=== PATIENT | female | born 1955 | race Caucasian/White ===

== ENCOUNTER 2018-11-26 02:49 | Inpatient (IN) ==
[2018-11-26] MEDS ORDERED: Naloxone 0.4 MG/ML INJ IVP PRN (10:30)
[2018-11-26] MEDS ORDERED: Albuterol 2.5 MG/3 ML NEBULIZER IH PRN (10:35)
--- NOTE | 2018-11-26 10:55 | Internal Med History&Physical ---
Date of Encounter: 11/26/18 Time of Encounter: 10:46 Internal Medicine - H&P: HPI Chief complaint: shortness of breath. vaginal bleeding Plans for Post Hospital Care: Home History of present illness: Ms. Grimes is a 63 year old female PMH of arthritis and vaginal bleeding. Patient was transferred from an outside facility where she presented due to shortness of breath. Information obtained from the patient's . He reports for the past couple of days the patient has been having more labored breathing, and she is getting short of breath with minimal exertion. Reports she gets short of breath now with changing position when she tries to sit up from a laying position she is winded, denies chest pain, but reports worsening edema on the lower extr b/l. Reports productive cough of clear sputum for the past couple of days. Denies increased water intake. They also reports the patient has been having vaginal bleeding for the past year. Reports she normally has vaginal bleeding every 4-5 weeks and it last 2-3 days. described the bleeding as passing big clots. Stated she had a biopsy done at a hospital in [place] but they lost follow up. patient was found to be profoundly anemic and was [place] [facility] [place] Past Med Surg Social Fam HX - Past Medical History Medical history: no medical history Psychiatric history: no psych history - Social History Smoking Status: 2nd Hand Smoke Exposure Smokeless Tobacco Status: No Alcohol use: none Drug use: none Internal Medicine - H&P: Meds Allergy/AdvReac Type Severity Reaction Status Date / Time No Known Allergies Allergy Verified 04/06/15 08:18 All Systems PM: A 10-system review of systems was performed and is negative for pertinent findings except as documented above in the HPI. - Constitutional Constitutional: no chills, no fever(s), no weakness - EENT Eyes: no change in vision, no pain Nose, mouth and throat: no dental pain - Cardiovascular Cardiovascular ROS IM: dyspnea, dyspnea on exertion, orthopnea, paroxysmal nocturnal dyspnea, no chest pain, no palpitations - Respiratory Respiratory: cough, no chest congestion, no excessive phlegm production, no change in phlegm color - Gastrointestinal Gastrointestinal: no abdominal pain, no nausea, no vomiting - Genitourinary Genitourinary: abnormal vaginal bleeding, no dysuria, no vaginal discharge - Musculoskeletal Musculoskeletal ROS IM: arthralgias, no back pain, no muscle weakness - Integumentary Integumentary IM: no erythema - Neurological Neurological ROS: no headache(s) - Psychiatric Psychiatric: no anxiety, no hopelessness - Endocrine Endocrine IM: no cold intolerance, no excessive sweating - Hematologic/Lymphatic Hematologic/Lymphatic: no lymphadenopathy - Allergic/Immunologic Allergic/Immunologic: no GI upset with certain foods - Constitutional Exam: Vitals: Reviewed General: Alert and oriented x4. In mild distress due to shortness of breath Skin: Normal color, no rash, no lesions. HEENT: EOM, pupils equal, round and reactive. Cardiovascular: RRR, normal S1 & S2, no rubs, murmurs or gallops. Lungs: crackles at the right lower lobe, no wheezing. Abdomen: Obese, soft, non-tender, no rigidity. NABS in all 4 quadrants Extremities: 2-3+ pitting edema Neurological: Normal cognition and motor skills. Rest of the physical exam is non contributory Internal Med - H&P Results - Diagnostic Studies Chest x-ray Status: image reviewed by me (right lober lobe effusion +/- consolidatation) - Assessment and Plan (1) Shortness of breath Current Visit: Yes Status: Acute Assessment and plan: possible secondary to symptomatic anemia vs CHF. Plan - Patient received 1 PRBCs, will repeat CBC 1 hour post transfusion - will transfuse per protocol - Iron panel - microcytic anemia. started on Iron replacement - TTE ordered to evaluate possible CHF, wall and valvular abnormalities as the cause of her sob. - started on furosemide 40mg/IV BID - fluids restriction to 1.5 litters a day, daily weight and strict intake and output - (2) DVT prophylaxis Current Visit: Yes Status: Chronic Assessment and plan: intermittent pneumatic compression. no chemical dvt prophylaxis due to vaginal bleeding (3) Pleural effusion, right Current Visit: Yes Status: Acute Assessment and plan: possible due to chf. patient started on IV diuretics. consider repeating chest x-ray after appropriate diuresis. incentive spirometry (4) Anemia Current Visit: No Status: Chronic Assessment and plan: Microcytic anemia possibly secondary to iron deficiency in the setting of vaginal bleeding. Plan of care as per problem #1 Qualifiers: Anemia type: iron deficiency Iron deficiency anemia type: chronic blood loss Qualified Code(s): D50.0 - Iron deficiency anemia secondary to blood loss (chronic) (5) Community acquired pneumonia Current Visit: No Status: Acute Assessment and plan: XR/XR chest 1V portable IMPRESSION: Consolidation within the right mid to lower lung, most compatible with pneumonia. That should be followed to resolution. Cardial-pericardial silhouette enlargement. Plan patient started on ceftriaxone 1gm/IV daily and azithromycin 500mg/IV daily legionella and strep pneumonia ordered sputum culture and gram stain Qualifiers: Laterality: right Lung location: lower lobe of lung Qualified Code(s): J18.1 - Lobar pneumonia, unspecified organism (6) Vaginal bleeding Current Visit: No Status: Chronic Assessment and plan: reports vaginal bleeding for about a year. lost follow up. Plan - OB&PAIRER ODDS consulted, recommendations appreciated - Time Spent With Patient Total time spent is greater than 50% in coordination of care (as documented) at patient's floor/unit and/or counseling patient: Greater than 35 minutes (45)
[2018-11-26 11:11] LABS: Basophils % 0.3 %; Hemoglobin 6.8 g/dL (11.5-15.4)
[2018-11-26 11:12] LABS: Eosinophils # 0.1 K/mcL (0.0-0.6); Eosinophils % 0.4 %; Hematocrit 25.7 % (35.3-44.9); Immature Granulocytes % 3.5 % (0-4); Lymphocytes # 1.5 K/mcL (0.6-4.6); Mean Corpuscular HGB Conc 26.5 g/dL (31.6-35.5); Mean Corpuscular Hemoglobin 22.4 pg (28.0-33.3); Mean Corpuscular Volume 84.5 fL (83.0-100.0); Monocytes % 8.8 %; Nucleated Red Blood Cells 1.4 /100 WBC (0); Platelet Count 293 K/mcL (140-400); Red Blood Count 3.04 M/mcL (3.82-4.97); Red Cell Distribution Width 18.6 % (11.5-14.5); White Blood Count 11.4 K/mcL (4.3-11.1)
[2018-11-26 11:35] LABS: Neutrophils # 8.4 K/mcL (1.6-8.9)
[2018-11-26 11:38] LABS: Anisocytosis 1+ (Not Present)
[2018-11-26 11:39] LABS: Hypochromasia Present (Not Present)
[2018-11-26 11:40] LABS: Microcytosis Present (Not Present); Platelet Estimate Normal (Normal)
[2018-11-26] MEDS: Furosemide 40 MG/4 ML VIAL IVP SCH ×2 (12:11→18:41)
[2018-11-26] MEDS ORDERED: 0.9 % Sodium Chloride 250 ML ONE (14:59)
[2018-11-26] MEDS ORDERED: Perflutren Lipid Microsphere 1.3 ML in 0.9 % Sodium Chloride 8.7 ML IVP ONE (15:57)
[2018-11-26 20:03] LABS: Eosinophils % 1.6 %; Hematocrit 29.2 % (35.3-44.9); Mean Corpuscular Hemoglobin 22.6 pg (28.0-33.3)
[2018-11-26 20:05] LABS: Basophils % 0.3 %; Eosinophils # 0.2 K/mcL (0.0-0.6); Hemoglobin 7.8 g/dL (11.5-15.4); Lymphocytes # 1.3 K/mcL (0.6-4.6); Lymphocytes % 11.1 %; Mean Corpuscular HGB Conc 26.7 g/dL (31.6-35.5); Mean Corpuscular Volume 84.6 fL (83.0-100.0); Monocytes # 0.8 K/mcL (0.0-1.3); Monocytes % 7.3 %; Neutrophils # 8.4 K/mcL (1.6-8.9); Nucleated Red Blood Cells 1.5 /100 WBC (0); Platelet Count 288 K/mcL (140-400); Red Blood Count 3.45 M/mcL (3.82-4.97); Red Cell Distribution Width 18.4 % (11.5-14.5); Segmented Neutrophils % 74.7 %; White Blood Count 11.3 K/mcL (4.3-11.1)
[2018-11-26 20:13] LABS: Hypochromasia Present (Not Present)
[2018-11-27] MEDS: cefTRIAXone 1,000 MG in Water for inj. (sterile) 10 ML IVP SCH (04:33)
[2018-11-27 05:47] LABS: % Iron Saturation 26 % (15-50); BUN/Creatinine Ratio 28 (6-26); Blood Urea Nitrogen 21 mg/dL (8-23); Calcium 7.8 mg/dL (8.6-10.3); Carbon Dioxide 31 mEq/L (23-29); Chloride 104 mEq/L (98-107); Chol/HDL Ratio 3.9 (0-4.9); Cholesterol 106 mg/dL (< 200); Glucose 119 mg/dL (70-105); HDL Cholesterol 27 mg/dL (40-59); Iron 97 mcg/dL (50-170); LDL Cholesterol,Calculated 60 mg/dL (0-99); Magnesium 2.2 mg/dL (1.6-2.6); Osmolality,Calculated 298 (280-300); Phosphorous 4.1 mg/dL (2.7-4.5); Potassium 3.9 mEq/L (3.5-5.1); Sodium 142 mEq/L (136-145); Transferrin 263 mg/dL (203-362); Triglycerides 97 mg/dL (< 150); eGFR For African Americans > 60 (> 60); eGFR For Non-African Americans > 60 (> 60)
[2018-11-27] MEDS ORDERED: Azithromycin 500 MG in D5% in Water 250 ML IVPB SCH (06:00)
[2018-11-27] MEDS: traMADol 50 MG TABLET PO PRN ×2 (07:38→20:27)
[2018-11-27] MEDS: Furosemide 40 MG/4 ML VIAL IVP SCH ×2 (07:39→16:15)
[2018-11-27 08:06] LABS: Hemoglobin 7.6 g/dL (11.5-15.4)
[2018-11-27 08:07] LABS: Mean Corpuscular HGB Conc 27.1 g/dL (31.6-35.5); Mean Corpuscular Volume 84.8 fL (83.0-100.0); Mean Platelet Volume 10.3 fL (9.4-12.4); Platelet Count 281 K/mcL (140-400); Red Cell Distribution Width 18.5 % (11.5-14.5); White Blood Count 11.4 K/mcL (4.3-11.1)
--- NOTE | 2018-11-27 14:21 | Internal Med Progress Note ---
Hospitalist Progress Note - Encounter Date of Encounter: 11/27/18 Time of Encounter: 14:19 - Subjective Interval History: I have seen and evaluated the patient at bedside. Patient reports significant improvement on her shortness of breath. Reports pleuritic chest pain. Denies nausea, vomiting or abdominal pain. Denies vaginal bleeding. - Exam Vitals: Temp Pulse Resp BP Pulse Ox 98.2 F 70 18 134/61 96 11/27/18 07:47 11/27/18 07:47 11/27/18 07:47 11/27/18 07:47 11/27/18 07:47 Exam: Vitals: Reviewed General: Alert and oriented x4. In no distress. Cardiovascular: RRR, normal S1 & S2, no rubs, murmurs or gallops. Lungs: CTA b/l, no wheezing. Abdomen: Obese, soft, non-tender, no rigidity. NABS in all 4 quadrants Extremities: 2+ pitting edema Neurological: Normal cognition Rest of the physical exam is non contributory - Assessment and Plan (1) Pleural effusion, right Current Visit: Yes Status: Acute Assessment and Plan: Continue furosemide IV twice a day. Repeat chest x-ray tomorrow morning. if pleural effusion persists will consult Pulm for thoracentesis to send the fluid for cytology as patient with vaginal bleeding and endometrial thickening. (2) Anemia Current Visit: No Status: Chronic Assessment and Plan: Patient is status post 2 units of packed RBC transfused. With significant improvement in her shortness of breath. H&H is stable post-transfusion. We will continue to monitor and transfuse per protocol. (3) Community acquired pneumonia Current Visit: No Status: Acute Assessment and Plan: Urine for a typical: Negative. Discontinue azithromycin. Continue ceftriaxone 1 g IV daily. (4) Vaginal bleeding Current Visit: No Status: Chronic Assessment and Plan: US/US transvaginal IMPRESSION: 1. Suboptimal evaluation due to patient body habitus. 2. Abnormal thickening of the endometrial stripe measuring up to 2.6 cm. In a patient with history of postmenopausal bleeding, further evaluation with tissue sampling is recommended. Plan FERTILIZER PROCESSING SUPERVISOR consulted, recommendation appreciated. (5) Congestive heart failure Current Visit: No Status: Acute Assessment and Plan: Chest is clear to auscultation. Patient with significant improvement in her shortness of breath. Total fluid balance of 2.0 L. Plan Continue furosemide 40 mg IV twice a day. Strict intake and output. Plus daily weight. Fluid restriction to 1.5 L a day. DVT Prophylaxis: Intermittent pneumatic compression for DVT prophylaxis. No chemical DVT prophylaxis due to her vagina bleeding. - Summary of Assessment and Plan Summary of Assessment and Plan: Patient to remain in the hospital due to CHF, improving shortness of breath. Potential discharge tomorrow morning. - Time Spent with Patient Total time spent is greater than 50% in coordination of care (as documented) at patient's floor/unit and/or counseling patient: Greater than 35 minutes (45) Plan of Care Discussed with: patient (and the nurse) Internal Medicine: Result - Labs CBC & Chem 7: 11/27/18 07:45 11/27/18 04:54 Labs: Short CBC 11/26/18 11/27/18 Range/Units 19:36 07:45 WBC 11.3 H 11.4 H (4.3-11.1) K/mcL Hgb 7.8 L 7.6 L (11.5-15.4) g/dL Hct 29.2 L 28.0 L (35.3-44.9) % Plt Count 288 281 (140-400) K/mcL Neutrophils # 8.4 (1.6-8.9) K/mcL BMP 11/27/18 04:54 Sodium 142 Potassium 3.9 Chloride 104 Carbon Dioxide 31 H BUN 21 Creatinine 0.75 Glucose 119 H Calcium 7.8 L Cardiac Enzymes 11/26/18 11/26/18 Range/Units 16:44 22:33 Troponin I 0.03 0.03 (< 0.04) ng/mL - Impressions Impressions Echocardiogram 11/26/18 10:32 Impressions: Technically challenging due to body habitus. LVEF 55-60%. Mild left ventricular diastolic dysfunction. Definity echo contrast was used. Right venticular structure is poorly visualized. Systolic function may be normal by Tissue Doppler (TAPSE not well obtained). Mild tricuspid regurgitation. No pulmonary hypertension based on TR signal obtained. Left Ventricular Wall Motion: Rest Echo Findings All wall segments showed normal motion. Findings: Study Quality * Technically challenging due to body habitus. ECG Findings * Normal sinus rhythm. Left Ventricle * LVEF 55-60%. * Mild left ventricular diastolic dysfunction. * LV chamber size and wall thickness measurements are normal. * Definity echo contrast was used. Right Ventricle * Right venticular structure is poorly visualized. Systolic function may be normal by Tissue Doppler (TAPSE not well obtained). Left Atrium * Normal left atrial size. Right Atrium * Normal right atrial size. Aortic Valve * Aortic valve not well visualized. * No aortic regurgitation. * No aortic stenosis. Mitral Valve * Mitral valve not well visualized. * No mitral regurgitation. * No mitral stenosis. Tricuspid Valve * Tricuspid valve not well visualized. * Mild tricuspid regurgitation. Pulmonic Valve * Pulmonic valve is not well visualized. * No pulmonic stenosis. * No pulmonic regurgitation. Pulmonary Artery * Pulmonary artery not well visualized. Aorta * Normally sized aortic root. Pericardium * There is no pericardial effusion present. Interatrial Septum * Interatrial septum not well evaluated. IVC * The IVC is not well evaluated. Transvaginal US 11/27/18 10:00 IMPRESSION: 1. Suboptimal evaluation due to patient body habitus. 2. Abnormal thickening of the endometrial stripe measuring up to 2.6 cm. In a patient with history of postmenopausal bleeding, further evaluation with tissue sampling is recommended. D/ / 11/27/2018 11:32:21 Claudette Valerio MD / Tatianna Watkins Interpreting Provider: Claudette Valerio MD - VTE Documentation of Mechanical Device: Intermittent pneumatic compression device Consult Discharge Plan - Plan Referrals: Vaughn Mendosa, COUNTRY PRINTER [Primary Care Provider] - ___ (2) Anemia Qualifiers: Anemia type: iron deficiency Iron deficiency anemia type: chronic blood loss Qualified Code(s): D50.0 - Iron deficiency anemia secondary to blood loss (chronic) (3) Community acquired pneumonia Qualifiers: Laterality: right Lung location: lower lobe of lung Qualified Code(s): J18.1 - Lobar pneumonia, unspecified organism (5) Congestive heart failure Qualifiers: Heart failure type: combined systolic and diastolic Heart failure chronicity: acute Qualified Code(s): I50.41 - Acute combined systolic (congestive) and diastolic (congestive) heart failure
--- NOTE | 2018-11-27 22:42 | OB/GYN History & Physical ---
Date of Encounter: 11/27/18 Time of Encounter: 22:36 Assessment and Plan (1) Vaginal bleeding Current visit: Yes Status: Chronic 63YO female, admitted to with shortness of breath and vaginal bleeding, post-menopausal 1. Post-menopausal bleeding - reports LMP at age 50-50 (patient continued to fall asleep during examination) - duration of 1 year with vaginal bleeding, every4-6weeks with a large vaginal bleed - reports to have been seen in [place], [place] 1 year ago with EMBx that were negative - patient has never had any form of pelvic surgery, nor a D&C - anemia on admission (ABL anemia) compensation likely, until symptomatic at 7.8 (11/26) - patient given 1U pRBC, awaiting pending CBC - currently without vaginal bleeding while inpatient - TVUS performed: 2.9cm endometrial lining Our recommendation is for our patient to have EMBx performed in the outpatient setting within 1-2 weeks. If the patient is already established with a JEWELRY FINISHER that can perform the EMBx, we recommend she sees them for follow up upon discharge from the hospital. Gynecologically, and pending her repeat CBC, her care can be managed and followed by JEWELRY FINISHER providers in a non-emergent setting. The was verbally abusive during this encounter therefore I do not feel comfortable seeing this patient in the outpatient setting. He was disrespectful, and raised his tone of voice multiple times throughout the encounter. Her care should not be jeopardized by his actions, therefore she would likely be better taken care of by another provider than myself. Calmly, I gave him as much information on the next steps to manage her post-menopausal bleeding and thickened endometrial stripe, however he became very frustrated that she would require to be seen outside of the hospital and that this was not a "one stop shop". I very much suspect NEGLECT and would HIGHLY RECOMMEND SOCIAL WORK BE CONSULTED to ensure transportation and follow up. Patient has been diagnosed with bed bugs in the past, as the patient did not talk for herself, barely able to keep her eyes open as he was answering the majority of the question(s). The went through a lengthy discussion on finances and obstacles that have caused him and his to neglect her bleeding for the past year. Thank you for your consultation, please let us know if you have any question(s) regarding further care of Ms. Grimes. MD Kerry ROMAN MD [facility] OBGYN History of Present Illness Chief complaint: Post menopausal bleeding HPI: GYNECOLOGY CONSULTATION: H&P CC: POST-MENOPAUSAL BLEEDING Ms. Grimes is a 63yo female who was admitted to IM service with shortne ss of breath an vaginal bleeding. SHe is post-menopausal and reports vaginal bleeding for the past year or so. Her Hgb upon admission was 7.8, and recheck today was 7.6. The patient was transfused 1U of pRBC, pending repeat CBC. THe patient seems to be compensating, until she started to become symptomatic. There was no severe vaginal bleeding upon admission. She described the bleeding as being intermittent but persistent for the past 1 year. THe patient is aware that this is not normal and our biggest concern at this time includes endometrial cancer but can also be vaginal, cervical, and ovarian. The patient reports a hx of normal PAP smears (but she was a poor historian and unable to stay awake for the HPI), and has NO general JEWELRY FINISHER care. reports patient to have been seen 1 year ago in [place], [place] at [facility] for vaginal bleeding and had bx performed. Per , results were negative. However she was never able to be seen afterward due to limited resources. She is aware that regardless of the TVUS results, she will need an endometrial biopsy performed in the outpatient setting to rule out carcinoma. Reports to tolerate a regular diet without n/v/d. Denies hx of STIs. OB HX: 3 prior 2 SAB JEWELRY FINISHER HX: Poor historian CURRENT MEDICATION(S): OBJECTIVE: Normotensive VSS, HDS, afebrile Pelvic examination: no blood in vault on admission Extremities: 2+ dorsal pedis pulses TVUS imaging report (11/27): Uterus: 10 x 4.9 cm Endometrial stripe: 2.6 cm Right Ovary: Not visualized. Left Ovary: Not visualized. Uterus: Suboptimal evaluation of the uterus due to patient body habitus. No definite focal abnormality is noted. Endometrial stripe: The endometrial stripe is thickened measuring up to 2.6cm. Free Fluid: No evidence of free fluid. IMPRESSION: 1. Suboptimal evaluation due to patient body habitus. 2. Abnormal thickening of the endometrial stripe measuring up to 2.6 cm. In a patient with history of postmenopausal bleeding, further evaluation with tissue sampling is recommended. LABS: SEE LABS TAB ASSESSMENT AND PLAN: 63YO female, admitted to with shortness of breath and vaginal bleeding, post-menopausal 1. Post-menopausal bleeding - reports LMP at age 50-52 (patient continued to fall asleep during examination) - duration of 1 year with vaginal bleeding, every4-6weeks with a large vaginal bleed - reports to have been seen in [place], [place] 1 year ago with EMBx that were ne gative - patient has never had any form of pelvic surgery, nor a D&C - anemia on admission (ABL anemia) compensation likely, until symptomatic at 7.8 (11/26) - patient given 1U pRBC, awaiting pending CBC - currently without vaginal bleeding while inpatient - TVUS performed: 2.9cm endometrial lining Our recommendation is for our patient to have EMBx performed in the outpatient setting within 1-2 weeks. If the patient is already established with a JEWELRY FINISHER that can perform the EMBx, we recommend she sees them for follow up upon discharge from the hospital. Gynecologically, and pending her repeat CBC, her care can be managed and followed by JEWELRY FINISHER providers in a non-emergent setting. The was verbally abusive during this encounter therefore I do not feel comfortable seeing this patient in the outpatient setting. He was disrespectful, and raised his tone of voice multiple times throughout the encounter. Her care should not be jeopardized by his actions, therefore she would likely be better taken care of by another provider than myself. Calmly, I gave him as much information on the next steps to manage her post-menopausal bleeding and thickened endometrial stripe, however he became very frustrated that she would require to be seen outside of the hospital and that this was not a "one stop shop". I very much suspect NEGLECT and would HIGHLY RECOMMEND SOCIAL WORK BE CONSULTED to ensure transportation and follow up. Patient has been diagnosed with bed bugs in the past, as the patient did not talk for herself, barely able to keep her eyes open as he was answering the majority of the question(s). The went through a lengthy discussion on finances and obstacles that have caused him and his to neglect her bleeding for the past year. Thank you for your consultation, please let us know if you have any question(s) regarding further care of Ms. Grimes. MD Kerry ROMAN MD [facility] Past Med Surg Social Fam HX - Past Medical History Medical history: no medical history Psychiatric history: no psych history - Past Surgical History Additional surgical history: tonsicllectomy - Social History Smoking Status: 2nd Hand Smoke Exposure Smokeless Tobacco Status: No Alcohol use: none Drug use: none Medications and Allergies No Known Home Drugs 11/27/18 [History] Allergy/AdvReac Type Severity Reaction Status Date / Time No Known Allergies Allergy Verified 11/27/18 14:38 Exam - Vital Signs Vital signs: Initial Vital Signs Temp Pulse Resp BP Pulse Ox 99 F 72 18 126/66 96 11/26/18 12:09 11/26/18 12:09 11/26/18 12:09 11/26/18 12:09 11/26/18 12:09 - Constitutional Constitutional: well developed, well nourished, no acute distress, average body habitus - HEENT HEENT: Normocephaly, Mucus Membranes Moist - Neck Neck exam: full ROM - Lungs Respiratory exam: CTAB - Cardiovascular Cardiovascular exam: RRR - Abdomen Abdomen: Present: bowel sounds normal - Vagina Vagina: Present: normal moisture - Anus/Rectum Anus/Rectum: Present: normal perianal skin, heme negative Results Result Diagrams: 11/27/18 07:45 11/27/18 04:54 Abnormal lab results WBC 11.4 K/mcL (4.3-11.1) H 11/27/18 07:45 RBC 3.30 M/mcL (3.82-4.97) L 11/27/18 07:45 Hgb 7.6 g/dL (11.5-15.4) L 11/27/18 07:45 Hct 28.0 % (35.3-44.9) L 11/27/18 07:45 MCH 23.0 pg (28.0-33.3) L 11/27/18 07:45 MCHC 27.1 g/dL (31.6-35.5) L 11/27/18 07:45 RDW 18.5 % (11.5-14.5) H 11/27/18 07:45 Immature Gran % 5.0 % (0-4) H 11/26/18 19:36 Nucleated RBCs/100 WBC 1.5 /100 WBC (0) H 11/26/18 19:36 Hypochromasia Present (Not Present) A 11/26/18 19:36 Anisocytosis 1+ (Not Present) A 11/26/18 10:50 Microcytosis Present (Not Present) A 11/26/18 10:50 Carbon Dioxide 31 mEq/L (23-29) H 11/27/18 04:54 BUN/Creatinine Ratio 28 (6-26) H 11/27/18 04:54 Glucose 119 mg/dL (70-105) H 11/27/18 04:54 Calcium 7.8 mg/dL (8.6-10.3) L 11/27/18 04:54 HDL Cholesterol 27 mg/dL (40-59) L 11/27/18 04:54 Procalcitonin 0.36 ng/mL (0.00-0.15) H 11/27/18 14:42 Crossmatch See Detail 11/26/18 12:44 All other labs normal. - VTE Documentation of Mechanical Device: Intermittent pneumatic compression device
[2018-11-28 04:02] LABS: Basophils % 0.3 %; Hemoglobin 7.5 g/dL (11.5-15.4); Mean Platelet Volume 10.2 fL (9.4-12.4); Nucleated Red Blood Cells 1.7 /100 WBC (0)
[2018-11-28 04:04] LABS: Eosinophils # 0.2 K/mcL (0.0-0.6); Eosinophils % 1.7 %; Hematocrit 28.2 % (35.3-44.9); Immature Granulocytes % 4.5 % (0-4); Lymphocytes # 1.7 K/mcL (0.6-4.6); Mean Corpuscular HGB Conc 26.6 g/dL (31.6-35.5); Mean Corpuscular Hemoglobin 22.7 pg (28.0-33.3); Mean Corpuscular Volume 85.5 fL (83.0-100.0); Monocytes # 0.9 K/mcL (0.0-1.3); Monocytes % 7.5 %; Neutrophils # 8.1 K/mcL (1.6-8.9); Platelet Count 280 K/mcL (140-400); White Blood Count 11.4 K/mcL (4.3-11.1)
[2018-11-28 04:24] LABS: BUN/Creatinine Ratio 23 (6-26); Blood Urea Nitrogen 19 mg/dL (8-23); Calcium 8.1 mg/dL (8.6-10.3); Carbon Dioxide 34 mEq/L (23-29); Chloride 104 mEq/L (98-107); Glucose 108 mg/dL (70-105); Magnesium 2.2 mg/dL (1.6-2.6); Osmolality,Calculated 301 (280-300); Phosphorous 3.8 mg/dL (2.7-4.5); Sodium 144 mEq/L (136-145); eGFR For African Americans > 60 (> 60); eGFR For Non-African Americans > 60 (> 60)
[2018-11-28 05:01] LABS: Anisocytosis 1+ (Not Present); Hypochromasia Present (Not Present); Platelet Estimate Normal (Normal)
[2018-11-28 05:02] LABS: Polychromasia 1+ (Not Present)
[2018-11-28] MEDS: cefTRIAXone 1,000 MG in Water for inj. (sterile) 10 ML IVP SCH (05:25)
[2018-11-28] MEDS: traMADol 50 MG TABLET PO PRN ×3 (08:34→23:03)
[2018-11-28] MEDS: Furosemide 40 MG/4 ML VIAL IVP SCH ×2 (08:34→17:13)
--- NOTE | 2018-11-28 11:52 | Internal Med Progress Note ---
Hospitalist Progress Note - Encounter Date of Encounter: 11/28/18 Time of Encounter: 11:50 - Subjective Interval History: I have seen and evaluated the patient at bedside. Patient reports her breathing continues to improve. reports pleuritic chest pain which is reproducible with palpation. denies abdominal pain, nausea or vomiting. Denies vaginal bleeding. - Exam Vitals: Temp Pulse Resp BP Pulse Ox 98.0 F 79 17 129/77 92 11/28/18 11:02 11/28/18 11:02 11/28/18 11:02 11/28/18 11:02 11/28/18 11:02 Exam: Vitals: Reviewed General: Alert and oriented x4. In no distress. Cardiovascular: RRR, normal S1 & S2, no rubs, murmurs or gallops. Lungs: CTA b/l, no wheezing. Abdomen: Obese, soft, non-tender, no rigidity. NABS in all 4 quadrants Extremities: 2+ pitting edema Neurological: Normal cognition. CN II-XII intact. Rest of the physical exam is non contributory - Assessment and Plan (1) Congestive heart failure Current Visit: No Status: Acute Assessment and Plan: Patient with mild HFpEF. Total fluid balance of 3.3 L. Plan - On furosemide 40 mg IV twice a day. - titrate off O2. - Strict intake and output. Plus daily weight. - Fluid restriction to 1.5 L a day. (2) Pleural effusion, right Current Visit: Yes Status: Acute Assessment and Plan: Repeated chest x-ray IMPRESSION: Cardiomegaly with pleural effusions, right larger than left. There has been some improved aeration of the right lung base. Plan - Pulm consulted for possible diagnostic thoracentesis in this patient with abnormal vaginal bleeding and endometrial thickening - will continue IV diuretics (3) Anemia Current Visit: No Status: Chronic Assessment and Plan: Patient is status post 2 units of packed RBC transfused. H&H is stable post-transfusion. Plan - On ferrous sulfate - Will continue to monitor and transfuse per protocol. (4) Community acquired pneumonia Current Visit: No Status: Acute Assessment and Plan: Urine for a typical: Negative. Plan: - On ceftriaxone 1 g IV daily. (5) Vaginal bleeding Current Visit: Yes Status: Chronic Assessment and Plan: OBGYN consulted: recommendation is for our patient to have EMBx performed in the outpatient setting within 1-2 weeks I explained to the patient and her at bedside the importance of outpatient follow up. They verbalized understanding. (6) Morbid obesity with BMI of 60.0-69.9, adult Current Visit: Yes Status: Chronic DVT Prophylaxis: Intermittent pneumatic compression for DVT prophylaxis. No chemical DVT prophylaxis due to Vaginal bleeding. - Summary of Assessment and Plan Summary of Assessment and Plan: Patient to remain in the hospital due to CHF. Improving respiratory distress. Potential discharge tomorrow - Time Spent with Patient Total time spent is greater than 50% in coordination of care (as documented) at patient's floor/unit and/or counseling patient: Greater than 35 minutes (40) Plan of Care Discussed with: patient (her and the nurse.) Internal Medicine: Result - Labs CBC & Chem 7: 11/28/18 03:42 11/28/18 03:42 Labs: Short CBC 11/28/18 Range/Units 03:42 WBC 11.4 H (4.3-11.1) K/mcL Hgb 7.5 L (11.5-15.4) g/dL Hct 28.2 L (35.3-44.9) % Plt Count 280 (140-400) K/mcL Neutrophils # 8.1 (1.6-8.9) K/mcL BMP 11/28/18 03:42 Sodium 144 Potassium 4.0 Chloride 104 Carbon Dioxide 34 H BUN 19 Creatinine 0.82 Glucose 108 H Calcium 8.1 L - Impressions Impressions Transvaginal US 11/27/18 10:00 IMPRESSION: 1. Suboptimal evaluation due to patient body habitus. 2. Abnormal thickening of the endometrial stripe measuring up to 2.6 cm. In a patient with history of postmenopausal bleeding, further evaluation with tissue sampling is recommended. D/ / 11/27/2018 11:32:21 Claudette Valerio MD / Tatianna Watkins Interpreting Provider: Claudette Valerio MD Chest X-Ray 11/28/18 04:00 IMPRESSION: Cardiomegaly with pleural effusions, right larger than left. There has been some improved aeration of the right lung base. D/ / 11/28/2018 07:58:50 Sky Polk MD / alonso Interpreting Provider: Sky Polk MD - VTE Documentation of Mechanical Device: Intermittent pneumatic compression device Consult Discharge Plan - Plan Referrals: Vaughn Mendosa, CLINICAL RESEARCH MONITOR [Primary Care Provider] - __ (1) Congestive heart failure Qualifiers: Heart failure type: combined systolic and diastolic Heart failure chronicity: acute Qualified Code(s): I50.41 - Acute combined systolic (congestive) and diastolic (congestive) heart failure (3) Anemia Qualifiers: Anemia type: iron deficiency Iron deficiency anemia type: chronic blood loss Qualified Code(s): D50.0 - Iron deficiency anemia secondary to blood loss (chronic) (4) Community acquired pneumonia Qualifiers: Laterality: right Lung location: lower lobe of lung Qualified Code(s): J18.1 - Lobar pneumonia, unspecified organism
--- NOTE | 2018-11-28 13:01 | Pulmonology Consult Note ---
<Anastacia Brinkpaola M - Last Filed: 11/28/18 15:05> Date of Encounter: 11/28/18 Medications and Allergies No Known Home Drugs 11/27/18 [History] Allergy/AdvReac Type Severity Reaction Status Date / Time No Known Allergies Allergy Verified 11/27/18 14:38 All Systems: The remainder of the systems were reviewed and are negative Results - Laboratory Findings CBC and BMP: 11/28/18 03:42 11/28/18 03:42 Abnormal lab findings: Abnormal lab results WBC 11.4 K/mcL (4.3-11.1) H 11/28/18 03:42 RBC 3.30 M/mcL (3.82-4.97) L 11/28/18 03:42 Hgb 7.5 g/dL (11.5-15.4) L 11/28/18 03:42 Hct 28.2 % (35.3-44.9) L 11/28/18 03:42 MCH 22.7 pg (28.0-33.3) L 11/28/18 03:42 MCHC 26.6 g/dL (31.6-35.5) L 11/28/18 03:42 RDW 19.0 % (11.5-14.5) H 11/28/18 03:42 Immature Gran % 4.5 % (0-4) H 11/28/18 03:42 Nucleated RBCs/100 WBC 1.7 /100 WBC (0) H 11/28/18 03:42 Polychromasia 1+ (Not Present) A 11/28/18 03:42 Hypochromasia Present (Not Present) A 11/28/18 03:42 Anisocytosis 1+ (Not Present) A 11/28/18 03:42 Microcytosis Present (Not Present) A 11/26/18 10:50 Carbon Dioxide 34 mEq/L (23-29) H 11/28/18 03:42 BUN/Creatinine Ratio 28 (6-26) H 11/27/18 04:54 Glucose 108 mg/dL (70-105) H 11/28/18 03:42 Calculated Osmolality 301 (280-300) H 11/28/18 03:42 Calcium 8.1 mg/dL (8.6-10.3) L 11/28/18 03:42 HDL Cholesterol 27 mg/dL (40-59) L 11/27/18 04:54 Procalcitonin 0.36 ng/mL (0.00-0.15) H 11/27/18 14:42 Crossmatch See Detail 11/26/18 12:44 - Microbiology Findings Microbiology Findings: Microbiology, Last 48 Hours 11/26/18 22:45 Legionella Antigen - Final Urine,Random-Not Preferred Streptococcus pneumoniae Antigen (M - Final - Clinical Findings Intake & Output: Intake & Output 11/27/18 11/28/18 11/28/18 23:59 07:59 15:59 Intake Total 240 / 500 240 / 240 Output Total 700 / 1300 200 / 1100 900 / 1100 Balance -460 / -800 -200 / -860 -660 / -860 Weight 153.7 kg Consult Discharge Plan - Plan Referrals: Vaughn Mendosa, SOLAR THERMAL INSTALLER [Primary Care Provider] - - Attending Attestation I examined this patient and my medical decision-making was reviewed with the Resident Physician. I agree with the documented findings, disposition and treatment plan as described except to the extent set forth below. Patient seen and examined. Labs, radiology, chart personally reviewed. Agree with resident's history and physical, assessment, plan with following comments: CONVOLUTE TUBE WINDER: Patient follows commands, Pulmonary: Acceptable oxygenation and ventilation and this time. Patient with [id number] pleural effusion and ultrasound was done at the bedside with the pocket and due to body habitus I feel it will be safer to have it with the interventional radiologist and differential diagnosis obviously is broad and fluid needs to be sent for analysis, however I feel this could be transudate of in nature with compressive atelectasis. I suspect patient has sleep-disordered breathing that investigated as outpatient. At this time she is maintaining Oxygen saturation within acceptable range and noninvasive ventilation is an o ption if her condition worsened. Patient has secondhand smoking and as outpatient consider pulmonary function tests. Cardiovascular: Patient stated that been diagnosed with congestive heart failure and clinically she appears to be volume overloaded and diuresis as tolerated. Thank you for consultation and please call for any questions. <Thomas Monsalve - Last Filed: 11/28/18 17:06> Date of Encounter: 11/28/18 Time of Encounter: 13:20 Assessment and Plan (1) Pleural effusion, right Current Visit: Yes Status: Acute As seen on CXR from today and CT from [facility] on 11/25/18 Dr Brink and I personally evaluated the effusion with the ultrasound, due to the complicated anatomy we decided to consult IR for diagnostic thoracentesis. There is concern for possible malignant effusion with vaginal bleeding >1 year and thickened endometrial stripe as seen on transvaginal ultrasound Other possible cause of effusion include CHF Less likely infectious process with no fever, chills, or increased sputum production. WBC mild and may be reactionary Acceptable oxygenation and ventilation at this time with SpO2 95% on 3lpm NC (2) Congestive heart failure Current Visit: Yes Status: Acute Echo from 11/26/18: - Technically challenging due to body habitus. - LVEF 55-60%. - Mild left ventricular diastolic dysfunction. - Definity echo contrast was used. - Right venticular structure is poorly visualized. Systolic function may be normal by Tissue Doppler (TAPSE not well obtained). - Mild tricuspid regurgitation. - No pulmonary hypertension based on TR signal obtained. Continue diuresis per primary Strict I&O Fluid restricted diet Qualifiers: Heart failure type: combined systolic and diastolic Heart failure chronicity: acute Qualified Code(s): I50.41 - Acute combined systolic (congestive) and diastolic (congestive) heart failure (3) Vaginal bleeding Current Visit: Yes Status: Chronic Pt reports irregular vaginal bleeding for >1 year Transvaginal ultrasound revealed thickened endometrial stripe OBGYN evaluated and recommended outpatient followup (4) Morbid obesity with BMI of 60.0-69.9, adult Current Visit: Yes Status: Chronic chronic issue Likely has sleep disordered breathing and will require outpatient pulmonology followup with sleep study History of Present Illness Consult date: 11/28/18 Requesting physician: Bang Love Reason for consult: pleural effusion Chief complaint: vaginal bleeding/SOB History of present illness: Ms Grimes is a 63F with PMH of arthritis. She was admitted on 11/26/18 after being transferred from an outside facility where she presented with SOB. Per reports the patient had been experiencing this shortness of breath for approximately the past 3-4 days, and is worsened with exertion. States she is unable to change position in bed without experiencing dyspnea. Also complaining of bilateral lower extremity edema, with productive cough of clear sputum. Patient reported no change in diet or increase in water intake. Per reports patient has also been complaining of vaginal bleeding for the past year. States she had a biopsy performed previously at a hospital in [place] but lost to follow-up. While at the outside facility she was found to be profoundly anemic and transferred [facility] for further management. An echocardiogram was obtained which was technically challenging due to body habitus, but revealed LVEF 55-60% with mild left ventricular diastolic dysfunction. Lower extremity Doppler was normal in both superficial and deep exams. Transvaginal ultrasound was also obtained which showed abnormal thickening of the endometrial stripe measuring up to 2.6 cm. OBGYN was consulted and recommended outpatient endometrial biopsy and followup. Pulmonology was consulted after a CXR revealed pleural effusions with right larger than left, for possible thoracentesis. Pt seen and examined at bedside. Reports continued shortness of breath worsened with exertion. Denies any chest pain, fever, chills, headaches, numbness, or tingling. She denies any history of COPD, asthma, or home inhaler use. She is a nonsmoker, but admits to significant secondhand smoke exposure as her is a smoker. Denies any previous thoracentesis. Past Med Surg Social Fam HX - Past Medical History Attestation: Yes The following information was validated with the patient. Source: patient, old records reviewed Medical history: no medical history Psychiatric history: no psych history - Past Surgical History Additional surgical history: tonsicllectomy - Social History Smoking Status: 2nd Hand Smoke Exposure Smokeless Tobacco Status: No Alcohol use: none Drug use: none All Systems: The remainder of the systems were reviewed and are negative - Constitutional Constitutional: no chills, no fever(s) - Cardiovascular Cardiovascular: dyspnea, dyspnea on exertion, edema, no chest pain, no diaphores is, no irregular heart rhythm, no syncope - Respiratory Respiratory: cough, dyspnea, dyspnea on exertion, no wheezing, no chest congestion, no excessive phlegm production, no change in phlegm color - Gastrointestinal Gastrointestinal: no abdominal pain, no nausea, no vomiting Physical Examination Vital Signs: Vital Signs, Last 4 Hours Temp Pulse Resp BP Pulse Ox 11/28/18 11:02 98.0 F 79 17 129/77 92 General appearance: no acute distress, alert Eyes: nonicteric ENT: oropharynx moist Neck: supple Effort: mildly labored Inspection: normal Auscultation: right: diminished breath sounds, bilateral: rales Cardiovascular: regular rate and rhythm Gastrointestinal: soft, non-tender, other (obese) Integumentary: normal Extremities: no cyanosis, pink and warm, edema Musculoskeletal: no deformities normal mental status, non-focal exam, pupils equal and round, motor strength normal and symmetric mood appropriate, affect normal Results - Laboratory Findings CBC and BMP: 11/28/18 03:42 11/28/18 03:42 Abnormal lab findings: Abnormal lab results WBC 11.4 K/mcL (4.3-11.1) H 11/28/18 03:42 RBC 3.30 M/mcL (3.82-4.97) L 11/28/18 03:42 Hgb 7.5 g/dL (11.5-15.4) L 11/28/18 03:42 Hct 28.2 % (35.3-44.9) L 11/28/18 03:42 MCH 22.7 pg (28.0-33.3) L 11/28/18 03:42 MCHC 26.6 g/dL (31.6-35.5) L 11/28/18 03:42 RDW 19.0 % (11.5-14.5) H 11/28/18 03:42 Immature Gran % 4.5 % (0-4) H 11/28/18 03:42 Nucleated RBCs/100 WBC 1.7 /100 WBC (0) H 11/28/18 03:42 Polychromasia 1+ (Not Present) A 11/28/18 03:42 Hypochromasia Present (Not Present) A 11/28/18 03:42 Anisocytosis 1+ (Not Present) A 11/28/18 03:42 Microcytosis Present (Not Present) A 11/26/18 10:50 Carbon Dioxide 34 mEq/L (23-29) H 11/28/18 03:42 BUN/Creatinine Ratio 28 (6-26) H 11/27/18 04:54 Glucose 108 mg/dL (70-105) H 11/28/18 03:42 Calculated Osmolality 301 (280-300) H 11/28/18 03:42 Calcium 8.1 mg/dL (8.6-10.3) L 11/28/18 03:42 HDL Cholesterol 27 mg/dL (40-59) L 11/27/18 04:54 Procalcitonin 0.36 ng/mL (0.00-0.15) H 11/27/18 14:42 Crossmatch See Detail 11/26/18 12:44 - Microbiology Findings Microbiology Findings: Microbiology, Last 48 Hours 11/26/18 22:45 Legionella Antigen - Final Urine,Random-Not Preferred Streptococcus pneumoniae Antigen (M - Final - Diagnostic Findings Chest x-ray: report reviewed, image reviewed CT scan - chest: report reviewed, image reviewed - Clinical Findings Intake & Output: Intake & Output 11/27/18 11/28/18 11/28/18 23:59 07:59 15:59 Intake Total 240 / 500 240 / 240 Output Total 700 / 1300 200 / 1100 900 / 1100 Balance -460 / -800 -200 / -860 -660 / -860 Weight 153.7 kg
--- NOTE | 2018-11-28 15:16 | IR Procedure Note ---
Date of procedure: 11/28/18 Consent Obtained: Written consent Timeout: Correct patient and procedure verified, Correct site verified, Time out performed, Skin prep completed Local anesthetic: Lidocaine 1% Was there an physician assistant primary care present: No Estimated blood loss (cc): 0 Complications: None; Tolerated procedure well Indications: right effusion Procedure Performed: right thoracentesis Site/Technique: 8F sheath Results/Findings (any specimens removed): moderate effusion Post Procedure Treatment Plan: CXR Specimen: right pleural fluid
[2018-11-28 16:05] LABS: Lactate Dehydrogenase 192 Units/L (140-271); Total Protein 5.8 g/dL (6.4-8.9)
[2018-11-28 17:00] LABS: RBC,Pleural Fluid < 0.002 M/mcL
[2018-11-28 17:03] LABS: Appearance of Pleural Fl Clear (Clear)
[2018-11-28 17:09] LABS: Amylase,Pleural Fluid 12 Units/L (No Ref Range); Glucose,Pleural Fluid 132 mg/dL (No Ref Range); LDH,Pleural Fluid 91 Units/L (No Ref Range); Total Protein,Pleural Fluid < 3.0 g/dL
[2018-11-28 20:39] LABS: Basophils,Pleural Fluid 0 %; Eosinophils,Pleural Fluid 0 %
[2018-11-29 05:04] LABS: Hemoglobin 7.7 g/dL (11.5-15.4)
[2018-11-29 05:05] LABS: Basophils % 0.4 %; Eosinophils # 0.3 K/mcL (0.0-0.6); Eosinophils % 2.3 %; Hematocrit 29.1 % (35.3-44.9); Immature Granulocytes % 2.4 % (0-4); Lymphocytes # 1.3 K/mcL (0.6-4.6); Lymphocytes % 12.4 %; Mean Corpuscular HGB Conc 26.5 g/dL (31.6-35.5); Mean Corpuscular Hemoglobin 22.5 pg (28.0-33.3); Mean Corpuscular Volume 85.1 fL (83.0-100.0); Mean Platelet Volume 9.9 fL (9.4-12.4); Monocytes # 0.8 K/mcL (0.0-1.3); Monocytes % 7.6 %; Nucleated Red Blood Cells 1.5 /100 WBC (0); Platelet Count 257 K/mcL (140-400); Red Blood Count 3.42 M/mcL (3.82-4.97); Segmented Neutrophils % 74.9 %; White Blood Count 10.7 K/mcL (4.3-11.1)
[2018-11-29] MEDS: cefTRIAXone 1,000 MG in Water for inj. (sterile) 10 ML IVP SCH (05:06)
[2018-11-29 05:22] LABS: BUN/Creatinine Ratio 25 (6-26); Blood Urea Nitrogen 19 mg/dL (8-23); Calcium 8.3 mg/dL (8.6-10.3); Carbon Dioxide 35 mEq/L (23-29); Chloride 100 mEq/L (98-107); Glucose 103 mg/dL (70-105); Magnesium 2.2 mg/dL (1.6-2.6); Osmolality,Calculated 295 (280-300); Phosphorous 3.8 mg/dL (2.7-4.5); Potassium 3.7 mEq/L (3.5-5.1); Sodium 141 mEq/L (136-145); eGFR For African Americans > 60 (> 60); eGFR For Non-African Americans > 60 (> 60)
[2018-11-29 05:38] LABS: Anisocytosis 1+ (Not Present); Hypochromasia Present (Not Present); Platelet Estimate Normal (Normal)
[2018-11-29] MEDS: Furosemide 40 MG/4 ML VIAL IVP SCH ×2 (10:34→16:45)
[2018-11-29] MEDS: traMADol 50 MG TABLET PO PRN (10:34)
--- NOTE | 2018-11-29 12:27 | Internal Med Progress Note ---
Hospitalist Progress Note - Encounter Date of Encounter: 11/29/18 Time of Encounter: 12:27 - Subjective Interval History: I have seen and evaluated the patient at bedside. patient reported feeling well, denies shortness of breath, abdominal pain, nausea or vomiting. denies chest pain. - Exam Vitals: Temp Pulse Resp BP Pulse Ox 98.2 F 86 21 145/89 96 11/29/18 06:55 11/29/18 06:55 11/29/18 06:55 11/29/18 06:55 11/29/18 06:55 Exam: Vitals: Reviewed General: Alert and oriented x4. In no distress. Cardiovascular: RRR, normal S1 & S2, no rubs, murmurs or gallops. Lungs: CTA b/l, no wheezing. Abdomen: Obese, soft, non-tender, no rigidity. NABS in all 4 quadrants Extremities: 2+ pitting edema Neurological: Normal cognition. CN II-XII intact. Rest of the physical exam is non contributory - Assessment and Plan (1) Congestive heart failure Current Visit: Yes Status: Acute Assessment and Plan: Patient with mild HFpEF. chest clear to auscultation Total fluid balance of 3.7 L. Plan - furosemide 40 mg IV twice a day. - O2 sat drops to 8&% off O2 supplement - 6 minute walk ordered for O2 qualification - Strict intake and output. Plus daily weight. - Fluid restriction to 1.5 L a day. (2) Vaginal bleeding Current Visit: Yes Status: Chronic Assessment and Plan: OBGYN consulted: recommendation is for our patient to have EMBx performed in the outpatient setting within 1-2 weeks (3) Pleural effusion, right Current Visit: Yes Status: Acute Assessment and Plan: s/p diagnostic thoracentesis with 400 ml of clear fluid removed. fluid analysis transudative. Plan - continue furosemide 40mg/IV BID - Cytology: pending (4) Morbid obesity with BMI of 60.0-69.9, adult Current Visit: Yes Status: Chronic (5) Anemia Current Visit: No Status: Chronic Assessment and Plan: Patient is status post 2 units of packed RBC transfused. H&H is stable post-transfusion. Plan - continue ferrous sulfate - monitor and transfuse per protocol. (6) Community acquired pneumonia Current Visit: No Status: Acute Assessment and Plan: Urine for a typical: Negative. Plan: - dc ceftriaxone 1 g IV daily - started on Augmentin 875mg/PO BID DVT Prophylaxis: intermittent pneumatic compression ordered - Summary of Assessment and Plan Summary of Assessment and Plan: PT/OT evaluated the patient and recommended ECF/SNF: pending placement. - Time Spent with Patient Total time spent is greater than 50% in coordination of care (as documented) at patient's floor/unit and/or counseling patient: Greater than 35 minutes (45) Plan of Care Discussed with: patient (and her at bedside.) Internal Medicine: Result - Labs CBC & Chem 7: 11/29/18 04:27 11/29/18 04:27 Labs: Short CBC 11/29/18 Range/Units 04:27 WBC 10.7 (4.3-11.1) K/mcL Hgb 7.7 L (11.5-15.4) g/dL Hct 29.1 L (35.3-44.9) % Plt Count 257 (140-400) K/mcL Neutrophils # 8.0 (1.6-8.9) K/mcL BMP 11/28/18 11/29/18 03:42 04:27 Sodium 144 141 Potassium 4.0 3.7 Chloride 104 100 Carbon Dioxide 34 H 35 H BUN 19 19 Creatinine 0.82 0.76 Glucose 108 H 103 Calcium 8.1 L 8.3 L - Impressions Impressions Thoracentesis 11/28/18 13:22 IMPRESSION: Successful ultrasound guided thoracentesis. D/ / Mariah Galindo MD / Mariah Galindo MD Interpreting Provider: Mariah Galindo MD Chest X-Ray 11/28/18 15:12 IMPRESSION: No pneumothorax identified. Otherwise, stable chest D/ / Gabriel Knott MD / Gabriel Knott MD Interpreting Provider: Gabriel Knott MD - VTE Documentation of Mechanical Device: Intermittent pneumatic compression device Consult Discharge Plan - Plan Referrals: Vaughn Mendosa, FULLING MILL OPERATOR [Primary Care Provider] - (1) Congestive heart failure Qualifiers: Heart failure type: combined systolic and diastolic Heart failure chronicity: acute Qualified Code(s): I50.41 - Acute combined systolic (congestive) and diastolic (congestive) heart failure (5) Anemia Qualifiers: Anemia type: iron deficiency Iron deficiency anemia type: chronic blood loss Qualified Code(s): D50.0 - Iron deficiency anemia secondary to blood loss (chronic) (6) Community acquired pneumonia Qualifiers: Laterality: right Lung location: lower lobe of lung Qualified Code(s): J18.1 - Lobar pneumonia, unspecified organism
[2018-11-30 01:12] LABS: Basophils % 0.3 %; Eosinophils # 0.2 K/mcL (0.0-0.6); Eosinophils % 1.6 %; Hematocrit 29.9 % (35.3-44.9); Hemoglobin 7.9 g/dL (11.5-15.4); Immature Granulocytes % 2.3 % (0-4); Immature Platelets 4.9 % (1.1-6.1); Lymphocytes # 1.1 K/mcL (0.6-4.6); Lymphocytes % 9.8 %; Mean Corpuscular HGB Conc 26.4 g/dL (31.6-35.5); Mean Corpuscular Volume 87.2 fL (83.0-100.0); Mean Platelet Volume 9.9 fL (9.4-12.4); Monocytes # 0.8 K/mcL (0.0-1.3); Monocytes % 6.9 %; Neutrophils # 8.8 K/mcL (1.6-8.9); Nucleated Red Blood Cells 0.8 /100 WBC (0); Platelet Count 251 K/mcL (140-400); Red Blood Count 3.43 M/mcL (3.82-4.97); Red Cell Distribution Width 21.5 % (11.5-14.5); Segmented Neutrophils % 79.1 %; White Blood Count 11.1 K/mcL (4.3-11.1)
[2018-11-30 01:34] LABS: Anisocytosis 3+ (Not Present); Macrocytosis Present (Not Present); Microcytosis Present (Not Present); Platelet Estimate Normal (Normal); Polychromasia 2+ (Not Present)
[2018-11-30 01:35] LABS: BUN/Creatinine Ratio 23 (6-26); Blood Urea Nitrogen 18 mg/dL (8-23); Calcium 8.4 mg/dL (8.6-10.3); Carbon Dioxide 36 mEq/L (23-29); Chloride 99 mEq/L (98-107); Glucose 117 mg/dL (70-105); Magnesium 2.2 mg/dL (1.6-2.6); Osmolality,Calculated 299 (280-300); Phosphorous 3.6 mg/dL (2.7-4.5); Potassium 3.7 mEq/L (3.5-5.1); Sodium 143 mEq/L (136-145); eGFR For African Americans > 60 (> 60); eGFR For Non-African Americans > 60 (> 60)
[2018-11-30] MEDS: traMADol 50 MG TABLET PO PRN (08:56)
[2018-11-30] MEDS: Furosemide 40 MG/4 ML VIAL IVP SCH (08:57)
[2018-11-30] MEDS ORDERED: Saline Nasal Spray 44 ML BOTTLE NS PRN (09:31)
--- NOTE | 2018-11-30 12:13 | Internal Med Progress Note ---
Hospitalist Progress Note - Encounter Date of Encounter: 11/30/18 Time of Encounter: 12:10 - Subjective Interval History: I have seen and evaluated the patient at bedside. patient reports her breathing is much better, closer to her baseline, although she reports occasional spells of shortness of breath during the day. denies chest pain, nausea or vomiting. - Exam Vitals: Temp Pulse Resp BP Pulse Ox 98 F 81 17 129/56 96 11/30/18 08:07 11/30/18 08:07 11/30/18 08:07 11/30/18 08:07 11/30/18 08:07 Exam: Vitals: Reviewed General: Alert and oriented x4. In no distress. Cardiovascular: RRR, normal S1 & S2, no rubs, murmurs or gallops. Lungs: CTA b/l, no wheezing. Abdomen: Obese, soft, non-tender, no rigidity. Extremities: trace edema in the lower extr b/l. Neurological: No focal neurological abnormalities Rest of the physical exam is non contributory - Assessment and Plan (1) Congestive heart failure Current Visit: Yes Status: Acute Assessment and Plan: No on acute exacerbation. Total fluid balance of 4.6 L. Plan - change IV furosemide to 40mg/PO daily. - Continue Strict intake and output. Plus daily weight. - Fluid restriction to 1.5 L a day. - out of bed to chair (2) Vaginal bleeding Current Visit: Yes Status: Chronic Assessment and Plan: OBGYN consulted: recommendation is for our patient to have EMBx performed in the outpatient setting within 1-2 weeks (3) Pleural effusion, right Current Visit: Yes Status: Acute Assessment and Plan: s/p diagnostic thoracentesis with 400 ml of clear fluid removed. fluid analysis transudative. - Cytology: pending - incentive spirometry (4) Morbid obesity with BMI of 60.0-69.9, adult Current Visit: Yes Status: Chronic (5) Anemia Current Visit: No Status: Chronic Assessment and Plan: H&H is stable post 2 units of PBRCs transfusion. Plan - On ferrous sulfate - monitor and transfuse per protocol. (6) Community acquired pneumonia Current Visit: No Status: Acute Assessment and Plan: Urine for a typical: Negative. Plan: on Augmentin 875mg/PO BID DVT Prophylaxis: Intermittent pneumatic compression for dvt prophylaxis. No chemical dvt prophylaxis due to vaginal bleed - Summary of Assessment and Plan Summary of Assessment and Plan: patient to remain in the hospital awaiting placement. - Time Spent with Patient Total time spent is greater than 50% in coordination of care (as documented) at patient's floor/unit and/or counseling patient: Greater than 35 minutes (45) Plan of Care Discussed with: patient (and the nurse) Internal Medicine: Result - Labs CBC & Chem 7: 11/30/18 00:50 11/30/18 00:50 Labs: Short CBC 11/30/18 Range/Units 00:50 WBC 11.1 (4.3-11.1) K/mcL Hgb 7.9 L (11.5-15.4) g/dL Hct 29.9 L (35.3-44.9) % Plt Count 251 (140-400) K/mcL Neutrophils # 8.8 (1.6-8.9) K/mcL BMP 11/30/18 00:50 Sodium 143 Potassium 3.7 Chloride 99 Carbon Dioxide 36 H BUN 18 Creatinine 0.78 Glucose 117 H Calcium 8.4 L - VTE Documentation of Mechanical Device: Intermittent pneumatic compression device Consult Discharge Plan - Plan Referrals: Vaughn Mendosa, JANITORIAL TECH [Primary Care Provider] - ___ (1) Congestive heart failure Qualifiers: Heart failure type: combined systolic and diastolic Heart failure chronicity: acute Qualified Code(s): I50.41 - Acute combined systolic (congestive) and diastolic (congestive) heart failure (5) Anemia Qualifiers: Anemia type: iron deficiency Iron deficiency anemia type: chronic blood loss Qualified Code(s): D50.0 - Iron deficiency anemia secondary to blood loss (chronic) (6) Community acquired pneumonia Qualifiers: Laterality: right Lung location: lower lobe of lung Qualified Code(s): J18.1 - Lobar pneumonia, unspecified organism
[2018-12-01] MEDS: Furosemide 40 MG TABLET PO SCH (10:00)
--- NOTE | 2018-12-01 10:37 | Discharge Summary ---
Orders not resulted at time of discharge: Pending orders 11/26/18 10:34 Sputum Culture [Culture,Sputum with Gram Stain] [RM] Routine 11/28/18 14:57 Culture,Body Fluid [RM] Routine 11/28/18 15:17 Cytology [PTH] Routine Date of Encounter: 12/01/18 Time of Encounter: 10:34 - Discharge Diagnosis (1) Congestive heart failure Priority: Primary Status: Resolved Qualifiers: Heart failure type: combined systolic and diastolic Heart failure chronicity: acute Qualified Code(s): I50.41 - Acute combined systolic (congestive) and diastolic (congestive) heart failure (2) Vaginal bleeding Priority: Secondary Status: Chronic (3) Pleural effusion, right Priority: Secondary Status: Acute (4) Morbid obesity with BMI of 60.0-69.9, adult Priority: Secondary Status: Chronic (5) Anemia Priority: Secondary Status: Chronic Qualifiers: Anemia type: iron deficiency Iron deficiency anemia type: chronic blood loss Qualified Code(s): D50.0 - Iron deficiency anemia secondary to blood loss (chronic) (6) Community acquired pneumonia Priority: Secondary Status: Acute Qualifiers: Laterality: right Lung location: lower lobe of lung Qualified Code(s): J18.1 - Lobar pneumonia, unspecified organism Hospital course: Ms. Grimes is a 63 year old female PMH of arthritis and vaginal bleeding. Patient was transferred from an outside facility where she presented due to shortness of breath. Patient was found to have severe anemia, and pulmonary vascular congestion on chest x-ray consistent with acute CHF exacerbation. pneumonia and a large right pleural effusion. Patient was transfused 2 packed RBCs, and was placed on IV diuretics with resolution of her acute symptoms. HEALTH INFORMATION PROVIDER was consulted. US transvaginal ordered: S/US transvaginal IMPRESSION: 1. Suboptimal evaluation due to patient body habitus. 2. Abnormal thickening of the endometrial stripe measuring up to 2.6 cm. In a patient with history of postmenopausal bleeding, further evaluation with tissue sampling is recommended. Recommended to have EMBx performed in the outpatient setting within 1-2 weeks. IR consulted for diagnostic thoracentesis, cytology report pending at discharge, family recommended to follow up with the final report. PT/OT evaluated the patient and recommended SNF/ECF. Patient is hemodynamically stable to be discharged. 4.8 L of fluid removed during these admission EV/EV echocardiogram w enhance Impressions: Technically challenging due to body habitus. LVEF 55-60%. Mild left ventricular diastolic dysfunction. Definity echo contrast was used. Right venticular structure is poorly visualized. Systolic function may be normal by Tissue Doppler (TAPSE not well obtained). Mild tricuspid regurgitation. No pulmonary hypertension based on TR signal obtained. - Time Spent with Patient Total time spent providing and/or coordinating discharge services: Time spent: Greater than 30 minutes (39) - Discharge Medications Prescriptions: New Amoxicillin/Clavulanate [Augmentin] 875 mg PO BIDWM 3 Days #6 tablet Ferrous Sulfate 325 mg PO BIDWM 30 Days #60 tablet Furosemide [Lasix] 40 mg PO DAILY 30 Days #30 tablet Home Medications: Amoxicillin/Clavulanate [Augmentin] 875 mg PO BIDWM 3 Days #6 tablet 12/01/18 [Rx] Ferrous Sulfate 325 mg PO BIDWM 30 Days #60 tablet 12/01/18 [Rx] Furosemide [Lasix] 40 mg PO DAILY 30 Days #30 tablet 12/01/18 [Rx] Allergies/Adverse Reactions: Allergy/AdvReac Type Severity Reaction Status Date / Time No Known Allergies Allergy Verified 11/27/18 14:38 Date of admission: 11/27/18 14:59 Primary care physician: Vaughn Mendosa CNP Consults: 11/26/18 10:39 Consult to PHYSICIAN ANESTHESIOLOGIST [CONS] Routine Consulting Provider: HEALTH INFORMATION PROVIDER Susana Reason for Consult: vaginal bleeding. symptomatic anemia Call Completed: Yes 11/26/18 12:59 Consult to Pastoral Services [CONS] Routine Comment: Consult to Facilities Maintenance Engineer [CONS] Routine Reason for SW Consult: financial concerns and home needs 11/27/18 14:30 Consult to Occupational Therapy [CONS] Routine Comment: Evaluate, develop and implement POC Reason for Consult: genarelized weakness Does patient have active BEDREST order?: No Is patient medically & hemodynamically stable?: Yes Consult to Physical Therapy [CONS] Routine Comment: Evaluate, develop and implement POC Reason for Consult: genarelized weakness Does patient have active BEDREST order?: No Is patient medically & hemodynamically stable?: Yes 11/28/18 11:53 Consult to Pulmonology [CONS] Routine Consulting Provider: [facility] [place] Reason for Consult: abnormal vaginal bleeding with endometrial thickening. Large right pleural effusion. eval for possible Dx thora Call Completed: Yes 11/28/18 13:19 Consult to Interventional Radiology [CONS] Routine Consulting Provider: Radiology Interventional [place] Reason for Consult: right pleural effusion/thoracentesis, will need cytology sent from sample Call Completed: Yes - Constitutional Vitals: Temp Pulse Resp BP Pulse Ox 99.1 F 73 14 130/67 98 12/01/18 07:38 12/01/18 07:38 12/01/18 07:38 12/01/18 07:38 12/01/18 07:38 Exam: Vitals: Reviewed General: Alert and oriented x4. In no distress. Cardiovascular: RRR, normal S1 & S2, no rubs, murmurs or gallops. Lungs: CTA b/l, no wheezing. Abdomen: Obese, soft, non-tender, no rigidity. Extremities: trace edema in the lower extr b/l. Neurological: No focal neurological abnormalities Rest of the physical exam is non contributory - Patient Status Disposition: Transfer SNF Condition: Fair Functional capacity at discharge: uses cane/walker Overall status at discharge: patient is back to baseline - Discharge Instructions Follow Up With: Vaughn Mendosa, [facility] [Primary Care Provider] - - Diet and Activity Activity: as per physical therapy, resume usual activities as tolerated Diet: low salt diet - VTE Documentation of Mechanical Device: Intermittent pneumatic compression device
--- NOTE | 2018-12-01 10:43 | Physician Discharge Referral ---
ExtendedCare Referral Info Transfer To: [facility] - Diagnosis (1) Congestive heart failure Priority: Primary Status: Resolved (2) Vaginal bleeding Priority: Secondary Status: Chronic (3) Pleural effusion, right Priority: Secondary Status: Acute (4) Morbid obesity with BMI of 60.0-69.9, adult Priority: Secondary Status: Chronic (5) Anemia Priority: Primary Status: Chronic (6) Community acquired pneumonia Priority: Primary Status: Acute Prognosis: Fair Aware of Diagnosis: Patient, Family Aware of Prognosis: Patient, Family - Transfer Medications Prescriptions: Amoxicillin/Clavulanate [Augmentin] 875 mg PO BIDWM 3 Days #6 tablet Ferrous Sulfate 325 mg PO BIDWM 30 Days #60 tablet Furosemide [Lasix] 40 mg PO DAILY 30 Days #30 tablet Home Medications: Amoxicillin/Clavulanate [Augmentin] 875 mg PO BIDWM 3 Days #6 tablet 12/01/18 [Rx] Ferrous Sulfate 325 mg PO BIDWM 30 Days #60 tablet 12/01/18 [Rx] Furosemide [Lasix] 40 mg PO DAILY 30 Days #30 tablet 12/01/18 [Rx] Allergies/Adverse Reactions: Allergy/AdvReac Type Severity Reaction Status Date / Time No Known Allergies Allergy Verified 11/27/18 14:38 - Respiratory Orders Oxygen / L per min Smoking Cessation: Smoking cessation has been advised. For more information, call the [place] Tobacco Quit Line at 4-190-AHZQNOW. - Advance Directives Code Status: Full Code - Mobility Orders Ambulate - Rehabiliation Orders Rehab Potential: Fair Rehab Orders: Evaluation for Physical Therapy, Evaluation for Occupational Therapy - Diet Orders Regular CERTIFICATION: I certify that the transfer of the above named patient to an Extended Care Facility is necessary for the continuing treatment of the diagnosis listed. The above information is true and accurate reflection of patient's current condition. Confidential - Redisclosure prohibited without a patient's written consent.
--- NOTE | 2018-12-01 13:03 | Electrocardiograph Report ---
[address] [address] Test Date: 2018-11-29 Pat Name: Marissa Grimes Department: 111 Room: 2N4 Gender: F Pediatric Surgeon: : 1955 Requested By: Bang Love Order Number: [id number] Reading MD: Jean Paul Mcpherson Measurements Intervals [place] Rate: 79 P: 22 AK: 187 QRS: -4 QRSD: 86 T: 24 QT: 363 QTc: 397 Interpretive Statements SINUS RHYTHM Electronically Signed On 12-01-2018 13:02:03 EDT by Jean Paul Mcpherosn
[2018-12-01] MEDS: traMADol 50 MG TABLET PO PRN (13:47)
[2018-12-02] MEDS: Furosemide 40 MG TABLET PO SCH (08:37)
[2018-12-02] MEDS: traMADol 50 MG TABLET PO PRN (17:31)
[2018-12-02 19:52] VITALS: BP 134/59
--- NOTE | 2018-12-02 20:10 | Internal Med Progress Note ---
Hospitalist Progress Note - Encounter Date of Encounter: 12/02/18 Time of Encounter: 15:45 - Subjective Interval History: Ms Grimes is awaiting placement to the ECF discharge was delayed pending placement. She denies any shortness of breath or episodes of vaginal bleed - Exam Vitals: Temp Pulse Resp BP Pulse Ox 98.8 F 80 20 134/59 92 12/02/18 19:50 12/02/18 19:50 12/02/18 19:50 12/02/18 19:50 12/02/18 19:50 Exam: GEN: Obese female NAD, A&O x 3, Pleasant and conversant SKIN: [place] warm acyanotic not jaundice HEART: RRR, no murmurs LUNGS: CTA no wheeze or crackles, overall non labored ABDOMEN; Soft, non tender or distended, BS x 4 normactive EXT: No LE edema, Pedal pulses 1+, radial pulses 2+ PSYCH: Mood and affect is appropriate - Assessment and Plan (1) Congestive heart failure Current Visit: Yes Status: Resolved Assessment and Plan: No on acute exacerbation. Total fluid balance of 4.6 L. Plan - change IV furosemide to 40mg/PO daily. - Continue Strict intake and output. Plus daily weight. - Fluid restriction to 1.5 L a day. - out of bed to chair (2) Anemia Current Visit: No Status: Chronic Assessment and Plan: H&H is stable post 2 units of PBRCs transfusion. Plan - On ferrous sulfate - No a.m. lab will obtain CBC in the morning pending discharge (3) Vaginal bleeding Current Visit: Yes Status: Chronic Assessment and Plan: OBGYN consulted: recommendation is for our patient to have EMBx performed in the outpatient setting within 1-2 weeks (4) Community acquired pneumonia Current Visit: No Status: Acute Assessment and Plan: Urine for a typical: Negative. Plan: on Augmentin 875mg/PO BID (5) Pleural effusion, right Current Visit: Yes Status: Acute Assessment and Plan: s/p diagnostic thoracentesis with 400 ml of clear fluid removed. fluid analysis transudative. - Cytology: pending - incentive spirometry (6) Morbid obesity with BMI of 60.0-69.9, adult Current Visit: Yes Status: Chronic Assessment and Plan: encourage lifestyle modification DVT Prophylaxis: Intermittent pneumatic compression for dvt prophylaxis. No chemical dvt prophylaxis due to vaginal bleed - Time Spent with Patient Total time spent is greater than 50% in coordination of care (as documented) at patient's floor/unit and/or counseling patient: Internal Medicine: Result - Labs CBC & Chem 7: 11/30/18 00:50 11/30/18 00:50 - VTE Documentation of Mechanical Device: Intermittent pneumatic compression device Consult Discharge Plan - Plan Instructions: Furosemide (By mouth), Amoxicillin/Clavulanate Potassium (By mouth), Heart Failure (DC), Anemia (DC) Referrals: Vaughn Mendosa CNP [Primary Care Provider] - (Patient will need to call Family Physician as soon as released from [facility] bed. Make appointment within 5-7 days after release) Kerry Allred MD [Partnered Physician] - 12/11/18 11:45 am (patient will be a new patient of Dr. Allred. Please arrive early for new patient paper work) Prescriptions: Amoxicillin/Clavulanate [Augmentin] 875 mg PO BIDWM 3 Days #6 tablet Ferrous Sulfate 325 mg PO BIDWM 30 Days #60 tablet Furosemide [Lasix] 40 mg PO DAILY 30 Days #30 tablet __ (1) Congestive heart failure Qualifiers: Heart failure type: combined systolic and diastolic Heart failure chronicity: acute Qualified Code(s): I50.41 - Acute combined systolic (congestive) and diastolic (congestive) heart failure (2) Anemia Qualifiers: Anemia type: iron deficiency Iron deficiency anemia type: chronic blood loss Qualified Code(s): D50.0 - Iron deficiency anemia secondary to blood loss (chronic) (4) Community acquired pneumonia Qualifiers: Laterality: right Lung location: lower lobe of lung Qualified Code(s): J18.1 - Lobar pneumonia, unspecified organism
== END 2018-12-02 21:24 | DRG 291 ==
LOC: 2NENU → SUATTDRO 07:14
PROVIDERS: ADMIT Internal Medicine Nephrology; ATTEND Internal Medicine